=== PATIENT | male | born 1970 | race Caucasian/White ===

== ENCOUNTER 2016-09-20 19:44 | Emergency (ER) | payer MEDICARE ==
[~2016-09-20] VITALS: Ht 185.4 cm; Wt 72.8 kg
[2016-09-20 19:45] VITALS: Ht 185.4 cm; Wt 72.8 kg
--- OUTSIDE RECORDS SUMMARY | 2016-09-20 19:48 | XMS REPORT | Continuity of Care Document ---
Author Author [facility] Organization [facility] Address [address] [place] [address] Phone Unavailable Care Team Providers Care Backhoe Operator Name Role Phone Physician, No Family Primary Care Physician Unavailable Insurance Providers Payer Name Policy Number Subscriber Name Relationship Medicare [id number] Kendall Trivedi Self / Same As Patient Advance Directives Directive Response Recorded Date/Time Do You Have A Living Will? No 09/19/16 8:12am Do You Have a DPOA? No 09/19/16 8:12am Problems Active Problems Medical Problem Onset Date Status Nausea Unknown Acute Abdominal pain Unknown Acute Medications No medication information available. Social History Social History Problem Response Recorded Date/Time Hx Alcohol Use No 09/19/2016 8:11am Query Response Start Date Stop Date Smoking status: Never smoker Hospital Discharge Instructions No hospital discharge instructions. Plan of Care Discharge Date 09/19/16 10:30am Disposition HOME, ROUTINE DIS/ASST LIVING Condition at Discharge Stable & Improved Prescriptions See Medication Section Functional Status No functional status results. Allergies, Adverse Reactions, Alerts Allergen Type Severity Reaction Status Last Updated Prochlorperazine Allergy Intermediate Active 09/19/16 Metoclopramide Allergy Intermediate Active 09/19/16 Immunizations No immunization records. Vital Signs Acute Vital Signs Vital Response Date/Time Height (Feet) 6 ft 09/19/2016 8:11am Height (Inches) 1.00 inches 09/19/2016 8:11am Temperature (Fahrenheit) 97.5 degrees F (97.6 - 99.5) 09/19/2016 10:20am Pulse Pulse Rate 97 bpm (60 - 100) 09/19/2016 10:20am Respiratory Rate 16 bpm (10 - 24) 09/19/2016 10:20am Oxygen Saturation O2 Sat by Pulse Oximetry 100 % (93 - 100) 09/19/2016 10:20am Blood Pressure 180/90 mm Hg 09/19/2016 10:20am Blood Pressure Mean 131 mm Hg 09/19/2016 10:20am Height 6 ft 1 in Weight 159 lb Body Mass Index 21.0 kg/m^2 Results Laboratory Results Test Name Result Units Flags Reference Collection Date/Time Result Date/ Time Comments Bedside Glucose 114 mg/dL H 65-99 09/19/2016 8:51am 09/19/2016 8:58am [id number] TESTING PERFORMED BY PERSONNEL OF: [address] [place] [address] Continuity of Care Document Created on: 09/19/2016 KENDALL TRIVEDI : 1970 Sex: Male Author Organization Unknown Address [address] [place] [address] Phone Unavailable Care Team Providers Care Backhoe Operator Name Role Phone DOMINGUEZ MARSHALL DO PCP Insurance Providers Payer Name Policy Number Subscriber Name Relationship Medicare [id number] Kendall Trivedi Self / Same As Patient Chief Complaint and Reason for Visit Chief Complaint Abdominal Pain Reason for Visit Abdominal pain Problems Active Problems Medical Problem Onset Date Status Abdominal pain Unknown Acute Medications Current Home Medications Medication Dose Units Route Directions Days/ Qty Instructions Start Date Hydromorphone Hcl 8 Mg 8 Mg Oral Twice Daily 09/18/16 Insulin Regular, Human 100 Unit/1 Ml 100 Unit Injection Sliding Scale Insulin 09/18/16 Insulin Glargine,Hum.rec.anlog 100 Unit/1 Ml 20 Unit Subcutaneously At Bedtime 09/18/16 Ondansetron 8 Mg 8 Mg Oral Every 4 Hours As Needed as needed for Nausea 09/18/16 Social History Social History Problem Response Recorded Date/Time Smoking Status Current some day smoker 07/2016 8:15am Hx Chewing Tobacco Use No 07/2016 8:15am Query Response Start Date Stop Date Smoking Status Current some day smoker Hospital Discharge Instructions No hospital discharge instructions. Plan of Care Discharge Date 09/18/16 3: 05pm Disposition 07 AGAINST MEDICAL ADVICE Condition at Discharge Against Medical Advice Forms Provided Patient Portal Information Prescriptions See Medication Section Functional Status No functional status results. Allergies, Adverse Reactions, Alerts Allergen Type Severity Reaction Status Last Updated prochlorperazine ([id number]) Allergy Unknown Active 09/18/16 metoclopramide ([id number]) Allergy Unknown Active 09/18/16 Immunizations No immunization records. Vital Signs Acute Vital Signs Vital Response Date/ Time Height 6 ft 1 in Weight 170 lb Body Mass Index 22.4 kg/m^2 Results Laboratory Results Test Name Result Units Flags Reference Collection Date/Time Result Date/Time Comments White Blood Count 12.8 x10^3/uL 4.5-13.5 12:00pm 09/18/2016 12:06pm Red Blood Count 4.43 x10^6/uL A 4.60-6.20 07/2016 12:00pm 09/18/2016 12:06pm Hemoglobin 11.6 g/dl A 13.5-18.0 2016 12:00pm 09/18/2016 12:06pm Hematocrit 35.1 % A 42.0-52.0 2016 12:00pm 09/18/2016 12:06pm Mean Corpuscular Volume 79 fL A 82-96 09/18/2016 12:00pm 09/18/2016 12:06pm Mean Corpuscular Hemoglobin 26.2 pg A 28.0- 33.0 09/18/2016 12:00pm 09/18/2016 12:06pm Mean Corpuscular Hemoglobin Concent 33.0 g/dL 32.0-36.0 09/18/2016 12:00pm 09/18/2016 12:06pm RDW Coefficient of Variation 14.9 % A 11.5 -14.5 09/18/2016 12:00pm 09/18/2016 12:06pm RDW Standard Deviation 41.1 fL 35.1-43.9 09/18/2016 12:00pm 09/18/2016 12:06pm Platelet Count 477 x10^3/uL A 150-400 2016 12:00pm 09/18/2016 12:06pm Mean Platelet Volume 9.3 fL 7.0-11.0 09/18/2016 12:00pm 09/18/2016 12:06pm Neutrophils (%) (Auto) 75.6 % 40.0-79.0 09/18/2016 12:00pm 09/18/2016 12:06pm Lymphocytes (%) (Auto) 13.9 % 10.0-50.0 09/18/2016 12:00pm 09/18/2016 12:06pm Monocytes (%) (Auto) 9.6 % 3.0-13.0 09/18/2016 12:00pm 09/18/2016 12:06pm Eosinophils (%) (Auto) 0.7 % A 1.0-3.0 09/18/2016 12:00pm 09/18/2016 12:06pm Basophils (%) (Auto) 0.2 % 0.0-2.0 09/18/2016 12:00pm 09/18/2016 12:06pm Neutrophils # (Auto) 9.7 x10^3 A 1.5-6.6 09/18/2016 12:00pm 09/18/2016 12:06pm Lymphocytes # (Auto) 1.8 x10/uL 1.5-3.5 09/18/2016 12:00pm 09/18/2016 12:06pm Monocytes # (Auto) 1.2 x10^3/uL A 0.0-1.0 12:00pm 09/18/2016 12:06pm Eosinophils # (Auto) 0.1 x10^3/uL 0.0-0.7 09/18/2016 12:00pm 09/18/2016 12:06pm Basophils # (Auto) 0.0 x10^3/uL 0.0-0.1 12:00pm 09/18/2016 12:06pm Glucometer 357 mg/dL A 70-100 09/18/2016 2:11pm 09/18/2016 2:11pm Glucose Level 256 mg/dL A 74-106 2016 12:00pm 09/18/2016 12:52pm Blood Urea Nitrogen 28 mg/dL A 7-18 12:00pm 09/18/2016 12:52pm Creatinine 2.1 mg/dL A 0.6-1.3 09/18/2016 12:00pm 09/18/2016 12:52pm BUN/Creatinine Ratio 13.4 RATIO 09/18/2016 12:00pm 09/18/2016 12:52pm Calcium Level 8.6 mg/dL 8.5-10.1 2016 12:00pm 09/18/2016 12:52pm Sodium Level 134 mmol/l A 136-145 2016 12:00pm 09/18/2016 12:52pm Potassium Level 3.8 mmol/L 3.5-5.1 2016 12:00pm 09/18/2016 12:52pm Chloride Level 97 mmol/L A 98-107 2016 12:00pm 09/18/2016 12:52pm Carbon Dioxide Level 27.5 mmol/L 21.0-32.0 09/18/2016 12:00pm 09/18/2016 12:52pm Albumin 3.5 g/dL 3.4-5.0 09/18/2016 12: 00pm 09/18/2016 12:52pm Total Protein 7.0 g/dL 6.4-8.2 2016 12:00pm 09/18/2016 12:52pm Globulin 3.5 g/dL 2.0-5.0 09/18/2016 12 :00pm 09/18/2016 12:52pm Albumin/Globulin Ratio 1.0 A 1.1-2.5 09/18/2016 12:00pm 09/18/2016 12:52pm Total Bilirubin 0.3 mg/dL 0.2-1.0 2016 12:00pm 09/18/2016 12:52pm Direct Bilirubin 0.1 mg/dL 0.0-0.2 09/18 12:00pm 09/18/2016 12:52pm Alkaline Phosphatase 128 U/L A 46-116 09/18/2016 12:00pm 09/18/2016 12:52pm Alanine Aminotransferase (ALT/SGPT) 28 U/L 12-78 09/18/2016 12:00pm 09/18/2016 12:52pm Aspartate Amino Transf (AST/SGOT) 18 U/L 15-37 09/18/2016 12:00pm 09/18/2016 12:52pm Glomerular Filtration Rate Calc 36.48 mL/min > 60 09/18/2016 12:00pm 09/18/2016 12:52pm Estimated Creatinine Clearance Calc 48.45 09/18/2016 12:00pm 09/18/2016 12:52pm Actual body weight used for calculation. Procedures No known history of procedures. Encounters Encounter Location Arrival/Admit Date Discharge/ Depart Date Attending Provider Departed Emergency Room [facility] 8:10am 09/18/16 3:05pm MAURO SMITH APRN-GANG PUSHER Recent Diagnosis Procedures No known history of procedures. Encounters Encounter Location Arrival/Admit Date Discharge/Depart Date Attending Provider Departed Emergency Room [facility] 09/19/16 8:12am 09/19/16 10: 30am Norberto Ford MD Recent Diagnosis Nausea Abdominal pain
--- OUTSIDE RECORDS SUMMARY | 2016-09-20 19:48 | XMS REPORT | Continuity Of Care Document ---
Author Author [facility] Organization [facility] Address [address] [place] [address] Phone Care Team Providers Care Casting Machine Operator Automatic Name Role Phone NON STAFF, PROVIDER Unavailable Unavailable CAMILLA MONTOYA, S AT Results Results No results recorded. Allergies and Adverse Reactions Allergies and Adverse Reactions Patient Unit Number: [id number] Agent Type Reaction Severity Status PROCHLORPERAZINE Drug Allergy Unknown Unknown Active METOCLOPRAMIDE Drug Allergy Unknown Unknown Active Problem List Problem List No problem list recorded. Plan of Care Plan Of Care Visit/Account #[id number] (September 19, 2016 2:42pm - September 19, 2016 5:00pm) Patient Instructions 1. Return for any new or worse symptoms 2. Follow up with your primary doctor next week Vital Signs Vital Signs Visit/Account #[id number] (September 19, 2016 2:42pm - September 19, 2016 5:00pm) Sign First Result Last Result Code(s) Temperature in Fahrenheit Temperature (Fahrenheit): 98.2 [degF] On September 19, 2016 2:39pm Temperature (Fahrenheit): 97.9 [degF] On September 19, 2016 4:50pm 8310-5 Body Temperature Weight in Kilograms Weight (Kilograms): 72.5000 kg On September 19, 2016 2:39pm 3141-9 Weight Measured Functional Status Functional and Cognitive Status No Functional Status Data Medications Inpatient/Ordered Medications - Medications administered during hospital visit Visit/Account #[id number] (September 19, 2016 2:42pm - September 19, 2016 5:00pm) Medication Route Sig/Schedule Precondition/Indication Comments/Instructions Codes DILAUDID(HYDROmorphone HCL) 2 MG/ML INJECTION Dose: 1 ML INTRAMUSC NOW Label Comments: MAY INCREASE FALL RISK 1 ML Hydromorphone Hydrochloride 2 MG/ML Cartridge (RxNorm): 7264720 DILAUDID (HYDROmorphone HCL) NDC: 04357934843 ZOFRAN ODT(ONDANSETRON HCL) 4 MG TAB Dose: 4 MG ORAL NOW Label Comments: MAY INCREASE FALL RISK Ondansetron 4 MG Disintegrating Oral Tablet (RxNorm): 316941 ZOFRAN ODT (ONDANSETRON HCL) NDC: 89153783754 DILAUDID(HYDROmorphone HCL) 2 MG/ML INJECTION Dose: 1 ML INTRAMUSC NOW Label Comments: MAY INCREASE FALL RISK 1 ML Hydromorphone Hydrochloride 2 MG/ML Cartridge (RxNorm): 4154999 DILAUDID (HYDROmorphone HCL) NDC: 91102931903 ZOFRAN ODT(ONDANSETRON HCL) 4 MG TAB Dose: 4 MG ORAL NOW Label Comments: MAY INCREASE FALL RISK Ondansetron 4 MG Disintegrating Oral Tablet (RxNorm): 716994 ZOFRAN ODT (ONDANSETRON HCL) NDC: 06146815499 History Of Encounters Encounters Visit/Account #[id number] (September 19, 2016 2:42pm - September 19, 2016 5:00pm) Account Status Physican Of Record Reason For Visit Visit Diagnosis Start Date/Time Stop Date/Time ER KAILEE SAMPSON MD ABD PAIN Not Available September 19, 2016 2:42pm September 19, 2016 5:00pm History of Procedures Procedure List No procedures recorded. Discharge Instructions Discharge Instructions Visit/Account #[id number] (September 19, 2016 2:42pm - September 19, 2016 5:00pm) DISCHARGE INSTRUCTIONS Physician Documentation Social History Social History No Social History Data. Immunizations Immunizations Patient Unit Number: [id number] Immunizations No immunizations recorded.
--- OUTSIDE RECORDS SUMMARY | 2016-09-20 19:48 | XMS REPORT | Continuity of Care Document ---
Author Author [facility] Address Unknown Phone Unavailable Support Name Relationship Address Phone ANNE TIAN DO Caregiver [address] [place] [address] Insurance Providers Payer Name Policy Number Subscriber Name Relationship Medicare A And B [id number] Yancy Trivedi 19 Self / Same As Patient Advance Directives Directive Response Recorded Date/Time Advanced Directives Unknown 09/20/16 8:46am Chief Complaint and Reason for Visit Chief Complaint GI Complaint Reason for Visit [id number] Problems Active Problems Medical Problem Onset Date Status Abdominal pain, chronic, generalized ~09/20/2016 Acute Medications Current Home Medications Medication Dose Units Route Directions Days/Qty Instructions Start Date Promethazine Hcl 25 Mg 25 Mg ORAL Four Times Daily 09/20/16 Ondansetron Hcl 8 Mg 8 Mg ORAL Four Times Daily as needed for Nausea/ Vomiting 09/20/16 Hydromorphone Hcl 8 Mg 8 Mg ORAL Four Times Daily as needed for Pain 09/20/16 Insulin Aspart 100 Unit/1 Ml 1 Unit Sub-Q Three Times Daily With Meals for Diabetes 09/20/16 Social History Query Response Start Date Stop Date Smoking Status Light tobacco smoker 1-9 Hospital Discharge Instructions No hospital discharge instructions. Plan of Care Discharge Date 09/20/16 11:00am Disposition 01 HOME OR SELF-CARE Condition at Discharge Stable Instructions/Education Provided Chronic Pain (DC) Nausea and Vomiting, Adult (DC) Gastroparesis (Delayed Gastric Emptying) Prescriptions See Medication Section Additional Instructions/Education Do not drive today since you received narcotic medications. Resume your regular medications as soon as your nausea resolves. Follow up with your doctor Friday. Some of your test results may not be complete prior to your leaving the Emergency Department. The Emergency Department is not authorized to give test results over the phone. Please contact the doctor's office listed in this packet of information for your final results. Follow up with your primary care physician or return to the Emergency Department for worsening or worrisome symptoms. * Emergency Department phone number: [phone], x [phone]* MEDICAL RECORD If you need copies of your X-rays, call [phone]. If you need copies of your medical record, including lab results, a signed authorization for release of records will be required. A telephone call for release of Health Information is not allowed. BILLING Billing can sometimes be confusing and frustrating. To help avoid confusion in the future, please take a moment to acquaint yourself with the billing parties for services. SERVICE BILLING [employer] Emergency Room Services [facility] Physician Services [facility] X-rays [facility] Patients will receive bills for services from the appropriate provider. If you have any questions about your [facility] bill, our staff will be happy to assist you. Please call [phone], and ask for the billing department. THANK YOU for choosing [facility] as your emergency care provider! Care Plan and Goals ~~Discharge Care Plan~~ Problem: Abdominal pain Goal: Decreased level of pain. Return to usual activities. Instructions: Take medication(s) as directed; follow up with primary care physician as directed; follow patient home care instructions. Functional Status No functional status results. Allergies, Adverse Reactions, Alerts Allergen Type Severity Reaction Status Last Updated Prochlorperazine Allergy Unknown Active 09/20/16 Metoclopramide Allergy Unknown Active 09/20/16 Immunizations No immunization records. Vital Signs Acute Vital Signs Vital Response Date/Time Temperature (Fahrenheit) 98.4 09/20/2016 10:35am Pulse 101 bpm 09/20/2016 10:35am Respirations 18 09/20/2016 10:35am Height 6 ft 0 in Weight 162 lb Body Mass Index 22.0 kg/m^2 Results No known relevant diagnostic tests, laboratory data and/or discharge summary. Procedures No known history of procedures. Encounters Encounter Location Arrival/Admit Date Discharge/Depart Date Attending Provider Departed Emergency Room [facility] 09/20/16 8:33am 09/20/16 11:00am ANNE TIAN DO Recent Diagnosis
--- OUTSIDE RECORDS SUMMARY | 2016-09-20 19:48 | XMS REPORT | Continuity of Care Document ---
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 Name Role Phone DOMINGUEZ MARSHALL DO Primary Care Physician [phone] Insurance Providers Payer Name Policy Number Subscriber Name Relationship Medicare [id number] Kendall Trivedi Self / Same As Patient Chief Complaint and Reason for Visit Chief Complaint Abdominal Pain Reason for Visit Abdominal pain Problems Active Problems Medical Problem Onset Date Status Abdominal pain Unknown Acute Medications Current Home Medications Medication Dose Units Route Directions Days/Qty Instructions Start Date Hydromorphone Hcl 8 Mg [...] Date/Time Smoking Status Current some day smoker 09/18/2016 8:15am Hx Chewing Tobacco Use No 09/18/2016 8:15am Query Response Start Date Stop Date Smoking Status Current some day smoker Hospital Discharge Instructions No hospital discharge instructions. Plan of Care Discharge Date 09/18/16 3:05pm Disposition 07 AGAINST MEDICAL ADVICE Condition at Discharge Against Medical Advice Forms Provided Patient Portal Information Prescriptions See Medication Section Functional Status No functional status results. Allergies, Adverse Reactions, Alerts Allergen Type Severity Reaction Status Last Updated prochlorperazine ([id number]) Allergy Unknown Active 09/18/16 metoclopramide ([id number]) Allergy Unknown Active 09/18/16 Immunizations No immunization records. Vital Signs Acute Vital Signs Vital Response Date/Time Height 6 ft 1 in Weight 170 lb Body Mass Index 22.4 kg/m^2 Results Laboratory Results Test Name Result Units Flags Reference Collection Date/Time Result Date/ Time Comments White Blood Count 12.8 x10^3/uL 4.5-13.5 09/18/2016 12:00pm 09/18/2016 12:06pm Red Blood Count 4.43 x10^6/uL A 4.60-6.20 09/18/2016 12:00pm 09/18/2016 12:06pm Hemoglobin 11.6 g/dl A 13.5-18.0 09/18/2016 12:00pm 09/18/2016 12:06pm Hematocrit 35.1 % A 42.0-52.0 09/18/2016 12:00pm 09/18/2016 12:06pm Mean Corpuscular Volume 79 fL A 82-96 09/18/2016 12:00pm 09/18/2016 12: 06pm Mean Corpuscular Hemoglobin 26.2 pg A 28.0-33.0 09/18/2016 12:00pm 2016 12:06pm Mean Corpuscular Hemoglobin Concent 33.0 g/dL 32.0-36.0 09/18/2016 12: 00pm 09/18/2016 12:06pm RDW Coefficient of Variation 14.9 % A 11.5-14.5 09/18/2016 12:00pm 2016 12:06pm RDW Standard Deviation 41.1 fL 35.1-43.9 09/18/2016 12:00pm 09/18/2016 12:06pm Platelet Count 477 x10^3/uL A 150-400 09/18/2016 12:00pm 09/18/2016 12: 06pm Mean Platelet Volume 9.3 fL 7.0-11.0 09/18/2016 12:00pm 09/18/2016 12: 06pm Neutrophils (%) (Auto) 75.6 % 40.0-79.0 09/18/2016 12:00pm 09/18/2016 12:06pm Lymphocytes (%) (Auto) 13.9 % 10.0-50.0 09/18/2016 12:00pm 09/18/2016 12:06pm Monocytes (%) (Auto) 9.6 % 3.0-13.0 09/18/2016 12:00pm 09/18/2016 12: 06pm Eosinophils (%) (Auto) 0.7 % A 1.0-3.0 09/18/2016 12:00pm 09/18/2016 12: 06pm Basophils (%) (Auto) 0.2 % 0.0-2.0 09/18/2016 12:00pm 09/18/2016 12: 06pm Neutrophils # (Auto) 9.7 x10^3 A 1.5-6.6 09/18/2016 12:00pm 09/18/2016 12 :06pm Lymphocytes # (Auto) 1.8 x10/uL 1.5-3.5 09/18/2016 12:00pm 09/18/2016 12:06pm Monocytes # (Auto) 1.2 x10^3/uL A 0.0-1.0 09/18/2016 12:00pm 09/18/2016 12:06pm Eosinophils # (Auto) 0.1 x10^3/uL 0.0-0.7 09/18/2016 12:00pm 2016 12:06pm Basophils # (Auto) 0.0 x10^3/uL 0.0-0.1 09/18/2016 12:00pm 09/18/2016 12:06pm Glucometer 357 mg/dL A 70-100 09/18/2016 2:11pm 09/18/2016 2:11pm Glucose Level 256 mg/dL A 74-106 09/18/2016 12:00pm 09/18/2016 12:52pm Blood Urea Nitrogen 28 mg/dL A 7-18 09/18/2016 12:00pm 09/18/2016 12: 52pm Creatinine 2.1 mg/dL A 0.6-1.3 09/18/2016 12:00pm 09/18/2016 12:52pm BUN/Creatinine Ratio 13.4 RATIO 09/18/2016 12:00pm 09/18/2016 12: 52pm Calcium Level 8.6 mg/dL 8.5-10.1 09/18/2016 12:00pm 09/18/2016 12:52pm Sodium Level 134 mmol/l A 136-145 09/18/2016 12:00pm 09/18/2016 12:52pm Potassium Level 3.8 mmol/L 3.5-5.1 09/18/2016 12:00pm 09/18/2016 12: 52pm Chloride Level 97 mmol/L A 98-107 09/18/2016 12:00pm 09/18/2016 12:52pm Carbon Dioxide Level 27.5 mmol/L 21.0-32.0 09/18/2016 12:00pm 2016 12:52pm Albumin 3.5 g/dL 3.4-5.0 09/18/2016 12:00pm 09/18/2016 12:52pm Total Protein 7.0 g/dL 6.4-8.2 09/18/2016 12:00pm 09/18/2016 12:52pm Globulin 3.5 g/dL 2.0-5.0 09/18/2016 12:00pm 09/18/2016 12:52pm Albumin/Globulin Ratio 1.0 A 1.1-2.5 09/18/2016 12:00pm 09/18/2016 12: 52pm Total Bilirubin 0.3 mg/dL 0.2-1.0 09/18/2016 12:00pm 09/18/2016 12: 52pm Direct Bilirubin 0.1 mg/dL 0.0-0.2 09/18/2016 12:00pm 09/18/2016 12: 52pm Alkaline Phosphatase 128 U/L A 46-116 09/18/2016 12:00pm 09/18/2016 12: 52pm Alanine Aminotransferase (ALT/SGPT) 28 U/L 12-78 09/18/2016 12:00pm 07/2016 12:52pm Aspartate Amino Transf (AST/SGOT) 18 U/L 15-37 09/18/2016 12:00pm 09/18 12:52pm Glomerular Filtration Rate Calc 36.48 mL/min >60 09/18/2016 12:00pm 07/2016 12:52pm Estimated Creatinine Clearance Calc 48.45 09/18/2016 12:00pm 2016 12:52pm Actual body weight used for calculation. Procedures No known history of procedures. Encounters Encounter Location Arrival/Admit Date Discharge/Depart Date Attending Provider Departed Emergency Room [facility] 09/18/16 8:10am 3:05pm MAURO SMITH APRN-SHON Recent Diagnosis
--- NOTE | 2016-09-20 20:09 | ERPDOC ---
Departure Disposition Decision Date: September 20, 2016 Disposition Decision Time: 20:12 Disposition: 01 DISCHARGED HOME, SELF-CARE Impression Impression Impression: Primary Impression: Gastroparesis Additional Impression: Opioid dependence Substance use status: uncomplicated Qualified Codes: F11.20 - Opioid dependence, uncomplicated Severity: Severe Condition: Improved Seen By: Physician only Patient Instructions: Gastroparesis (ED) Problems/Meds/Labs Reviewed?: Yes Medications reviewed and manag: Yes Additional Instructions: Use your routine medications as usual. See your doctor in your home state as soon as possible. Follow up care ordered?: Yes Mental Status: Alert HPI - Abdominal Pain General Chief Complaint: Abdominal Pain Stated Complaint: ABD PAIN Time Seen by Provider: 19:50 Source: patient History/Exam Limitations: no limitations HPI - Abdominal Pain Initial Comments Patient presents with his classic symptoms of severe diffuse abdominal pain with nausea. Patient has history of severe gastroparesis, and is frequently hospitalized. Last hospitalization was at [facility] in [facility], July of this year. Patient has had multiple CT scans, multiple admissions, and frequent lab testing all of which have not contributed to his care and his estimate. At this time the patient states that he would like to get a hold of his symptoms earlier rather than later, and requests IM injection of Dilaudid 4 mg, and Phenergan 25 mg. Patient states that he has often been given as much as 8 mg of Zofran without relief, as well as multiple IV medications minimal improvement. Patient routinely takes 8 mg Dilaudid orally every 4-6 hours, and uses Zofran 4-6 times daily. Today the patient's symptoms got ahead of him, and he has been unable to take his oral medications, and would like a shot for pain and for nausea. Patient is very clear in stating he prefers not to have an IV due to multiple PICC lines in the past and sclerosed veins. Also the patient declines workup for his gastroparesis and would refer not to have lab and CT testing done. Pt states he has only had DKA "a few times" and it does not feel like this. Occurred At: home Onset: Rapid Duration: 6-12 hrs Associated Symptoms: nausea/vomiting, DENIES: back pain, chest pain, diaphoresis, fatigue, fever/chills, headache, heartburn, rash, shortness of breath, swelling/mass in abdomen, syncope, weakness Hx of Similar Symptoms: Yes Allergies: Coded Allergies: metoclopramide (Verified Allergy, Severe, EXTRAPYRAMIDAL EFFECT, 09/20/16) prochlorperazine (Verified Allergy, Severe, EXTRAPYRAMIDAL EFFECT, 09/20/16) Past History Patient Medical History Problem List Updates: Gastroparesis Chronic recurrent abdominal pain Opioid dependence IDDM Past Medical History Metabolic: diabetes Surgical History Surgical History Comments Multiple abdominal surgeries including jejunostomy tube, gastric tube, and removal of both Social History Smoking Status: Current every day smoker Does patient use chewing tobac: No Second Hand Exposure: No Substance Use Type: does not use Alcohol Intake: none Record Review Pertinent history updated: Yes Review of Systems Constitutional Constitutional: DENIES: appetite decrease, appetite increase, chills, dizziness , fever, weakness ENMT Ears: DENIES: pain Hearing: DENIES: hearing loss, tinnitus Balance: DENIES: vertigo Mouth/Throat: DENIES: change in swallowing, change in voice, hoarsness, painful swallowing, sore throat Cardiovascular Cardiac: DENIES: chest pain, dyspnea on exertion Rhythm/Rate: DENIES: irregular beat, palpitations, tachycardia Vascular: DENIES: pedal edema Pulmonary Respiratory: DENIES: cough, dyspnea, pleuritic chest pain GI Upper Abdomen: DENIES: dysphagia, heartburn/indigestion, nausea, pain, vomiting Lower Abdomen: DENIES: blood in stool, constipation, diarrhea, pain General: DENIES: burning, dysuria, frequency, pain, urgency Musculoskeletal General: DENIES: cramps, joint pain, joint swelling, pain, weakness Integumentary Skin: DENIES: rash, sores Neurological General: DENIES: headache, numbness, tingling, vertigo, weakness Psychiatric Psychiatric: DENIES: anxiety, depression, nervousness Physical Exam General General Nourishment: well nourished, well developed, appears stated age General Body Habitus: disheveled Vitals and Pain First Documented Vital Signs Date Time Temp Pulse Resp B/P Pulse Ox O2 Delivery O2 Flow Rate FiO2 09/20/16 19:45 98.2 96 16 172/95 100 Room Air Weight: Kilograms: 72.800 Height (feet): 6 Height (inches): 1.00 Triage Pain Scale: RN VS reviewed by Provider: Yes Comments Patient appears very fidgety, has somewhat tangential thought patterns, poor hygiene, with horrific dental decay. Normal Exams: Head: Normocephalic w/o trauma Eyes: Pupils are PERRLA w/ EOMI, No scleral icterus, irritation, or foreign bodies noted ENMT: No facial trauma, nasal exudates, pharyngeal erythema, or exudates are noted Neck: Full range of motion, without adenopathy, JVD, bruits or thyromegaly Chest/Resp: Clear all michael, with good airflow, and symmetry bilaterally CV: Regular rate and rhythm, without murmur or gallop, Pulses 2+ all extremities, capillary refill, <2 seconds all ext., no pedal edema noted Lymphatic: No lymphadenopathy, or lymphedema noted Musculoskeletal: No tenderness, or deformity noted, good range of motion, all extremities Integumentary: No rashes, hives, or bruising noted, hair and nails, without abnormality Neurologic: Patient is alert, and oriented, cranial nerves, motor/sensory/ cerebellar, exams w/o gross deficits, to observation Psychiatric: Patient exhibits, appropriate attention, emotion and affect Abdomen (brief) Abdominal Brief: FOUND: bowel normo active x4, soft, tender (moderate diffuse abdominal tenderness, positive bowel sounds throughout, no guarding no rebounding), NOT FOUND: distended, hepatosplenomegaly Progress Results/Orders Orders Procedure Category Date Status Time Hydromorphone PHA 09/20/16 Complete (Dilaudid) 20:15 Promethazine PHA 09/20/16 Complete (Phenergan) 20:15 Lab Results Laboratory Tests Test 09/20/16 22:18 Glucometer 129mg/dL Medications Current ED Medications Hydromorphone HCl (Dilaudid) 4 mg O ONCE IM Last administered on 09/20/16 20: 17; Start 09/20/16 at 20:15; Stop 09/20/16 at 20:16; Status DC Promethazine HCl (Phenergan) 25 mg O ONCE IM Last administered on 09/20/16 20: 17; Start 09/20/16 at 20:15; Stop 09/20/16 at 20:16; Status DC Progress Progress After confirmation of the patient's last admission at [facility] for gastroparesis, as well as review of the patient's current medication prescription bottles, patient was given Dilaudid 4 mg IM, and Phenergan 25 mg IM When the nurse went to check on the patient after injections pt noted that it might take "several round of shots" to get his sx under control. I instructed the patient that if he required any further medications we should really start an IV line, get lab and give him meds and fluids that way. Pt is quite obstinate but relents. We will check on pt in 30 minutes to assure that he is improving. 2200 - Pain improving but still 7/10, Accucheck - 128 Pt refuses IV, but is willing to take one additional shot for pain and use his home meds thereafter. VENKATA PAZ MD September 20, 2016 20:09 VENKATA PAZ MD September 20, 2016 20:09
[2016-09-20] MEDS ORDERED: PROMETHAZINE 25 MG INJECTION IM ONE (20:15)
[2016-09-20] MEDS ORDERED: HYDROMORPHONE 2mg/ml INJECTION IM ONE ×2 (20:15→22:30)
[2016-09-20] MEDS ORDERED: HYDR8TAB2 PO (20:27)
[2016-09-20] MEDS ORDERED: ONDA8TAB5 PO (20:27)
[2016-09-20] MEDS ORDERED: INSU100C14 SQ (20:27)
[2016-09-20 22:45] VITALS: BP 121/79; PULSE 82; RESP 16; TEMP 98.2; O2SAT 100
== END 2016-09-20 22:45 | disposition home or self-care (01) ==
LOC: ED 19:44
DX: K31.84 Gastroparesis (principal); F11.20 Opioid dependence, uncomplicated; E11.9 Type 2 diabetes mellitus without complications; Z79.4 Long term (current) use of insulin
CPT/HCPCS: 82948; 96372; 99283; J1170; J2550